=== PATIENT | male | born 1985 | race Caucasian/White ===

== ENCOUNTER 2016-09-23 02:15 | Emergency (ER) | payer OTHER ==
[~2016-09-23] VITALS: Ht 185.4 cm; Wt 81.6 kg
[2016-09-23 02:24] VITALS: BP 153/81
[2016-09-23] MEDS ORDERED: HYDR-971 PO (02:32)
--- NOTE | 2016-09-23 02:32 | PHYS DOC ---
Past Medical History Past Medical History: GERD, P.U.D., Schizophrenia Past Surgical History: No Surgical History Alcohol Use: None Drug Use: None Adult General Chief Complaint Chief Complaint: LOWER BACK PAIN OR INJURY [facility] HPI This is a 31-year-old male who presents with 3 days worth of left-sided sciatic type pain that he states happened suddenly while he was trying to lift his daughter. Patient ambulated in the department with his back hunched and appeared to be in significant pain. He states the pain is localized primarily to his left lumbar region and does radiate into his time buttock on the left side. He denies any urinary incontinence. He denies any saddle-type anesthesia. He states he's had similar symptoms several years ago and has required steroid injections in his spine before. He denies any significant past mental history. 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 Review of Systems Review of Systems Constitutional: Denies fever or chills [] Eyes: Denies change in visual acuity, redness, or eye pain [] HENT: Denies nasal congestion or sore throat [] Respiratory: Denies cough or shortness of breath [] Cardiovascular: No additional information not addressed in HPI [] GI: Denies abdominal pain, nausea, vomiting, bloody stools or diarrhea [] : Denies dysuria or hematuria [] Musculoskeletal: Has back pain, denies joint pain [] Integument: Denies rash or skin lesions [] Neurologic: Denies headache, focal weakness or sensory changes [] Endocrine: Denies polyuria or polydipsia [] Current Medications Current Medications Current Medications Medications (Trade) Dose Ordered Sig/[facility] Start Time Stop Time Status Last Admin Dose Admin Ketorolac Tromethamine (Toradol Im) 60 mg 1X ONCE 09/23/16 02:45 09/23/16 02:46 DC 09/23/16 02:44 60 MG Allergies Allergies Allergies Coded Allergies Type Severity Reaction Last Updated Verified No Known Drug Allergies 10/20/14 No Physical Exam Physical Exam Constitutional: Well developed, well nourished, no acute distress, non-toxic appearance. [] HENT: Normocephalic, atraumatic, bilateral external ears normal, oropharynx moist, no oral exudates, nose normal. [] Eyes: PERRLA, EOMI, conjunctiva normal, no discharge. [] Neck: Normal range of motion, no tenderness, supple, no stridor. [] Cardiovascular:Heart rate regular rhythm, no murmur [] Lungs & Thorax: Bilateral breath sounds clear to auscultation [] Abdomen: Bowel sounds normal, soft, no tenderness, no masses, no pulsatile masses. [] Skin: Warm, dry, no erythema, no rash. [] Back: Left lower lumbar tenderness with no palpable deformity or stepoff, no CVA tenderness. [] Extremities: No tenderness, no cyanosis, no clubbing, ROM intact, no edema. [] Neurologic: Alert and oriented X 3, normal motor function, normal sensory function, no focal deficits noted. [] Psychologic: Affect normal, judgement normal, mood normal. [] Current Patient Data Vital Signs Vital Signs Date Time Temp Pulse Resp B/P Pulse Ox O2 Delivery O2 Flow Rate FiO2 09/23/16 02:24 98.0 87 16 153/81 97 Room Air 98.0 EKG EKG [] Radiology/Procedures Radiology/Procedures [] Course & Med Decision Making Course & Med Decision Making Pertinent Labs and Imaging studies reviewed. (See chart for details) This is a 31 yo male presents with acute lower lumbar tenderness in a sciatic type pattern was given an injection of Toradol and will be given a brief course of Ramey for his symptoms with strict instruction [facility] if his symptoms do not improve. He was explicitly told to avoid any strenuous activities and to take his pain medication only as needed. He is discharged without incident feeling much improved. Dragon Disclaimer Dragon Disclaimer This electronic medical record was generated, in whole or in part, using a voice recognition dictation system. Departure Departure Impression: Primary Impression: Sciatica of left side Disposition: 01 HOME, SELF-CARE Admitting Physician: Other Condition: IMPROVED Referrals: NO PCP (PCP) Patient Instructions: Sciatica, [id number] Additional Instructions: Please take your pain medication as needed and continue to take motrin for your symptoms. [facility] as you may require an MRI. Return to the ER if you develop any worsening of your symptoms. Scripts Hydrocodone/Apap 5-325 (Ramey 5-325 Tablet)1 Each Tablet1 Tab PO PRN Q6HRS PRN PAIN #10 TAB Prov:LIZZETH AVILA DO 09/23/16 LIZZETH AVILA DO Sep 23, 2016 02:32
[2016-09-23] MEDS ORDERED: KETOROLAC TROMETHAMINE 60 MG/2 ML INJ. IM ONE (02:45)
== END 2016-09-23 02:48 | disposition home or self-care (01) ==
LOC: ER 02:15
DX: M54.42 Lumbago with sciatica, left side (principal); K21.9 Gastro-esophageal reflux disease without esophagitis; F20.9 Schizophrenia, unspecified
CPT/HCPCS: 96372; 99283; J1885

== ENCOUNTER 2016-11-28 00:53 | Emergency (ER) | payer OTHER ==
[~2016-11-28] VITALS: Ht 185.4 cm; Wt 81.6 kg
[~2016-11-28 00:53] MED LIST: HYDR-971 PO
[2016-11-28 01:00] VITALS: BP 142/67
[2016-11-28] MEDS ORDERED: CYCL5TAB PO (01:20)
--- NOTE | 2016-11-28 01:21 | PHYS DOC ---
Past Medical History Past Medical History: GERD, P.U.D., Schizophrenia Past Surgical History: No Surgical History Alcohol Use: None Drug Use: None Adult General Chief Complaint Chief Complaint: LOWER BACK PAIN OR INJURY HPI HPI Patient is a 31 year old male who presents with 2 days of right lower back pain radiating to his left side and down the back of his left buttock when he bends over. Pain started with bending incident. His pain is constant, crampy/ spasm-like/achy, worse with range of motion. He denies saddle anesthesia, numbness, tingling, weakness, bowel or bladder dysfunction, abdominal pain, fever or chills, nausea or vomiting, dysuria, hematuria. Review of Systems Review of Systems Constitutional: Denies fever or chills [] Eyes: Denies change in visual acuity, redness, or eye pain [] HENT: Denies nasal congestion or sore throat [] Respiratory: Denies cough or shortness of breath [] Cardiovascular: No additional information not addressed in HPI [] GI: Denies abdominal pain, nausea, vomiting, bloody stools or diarrhea [] : Denies dysuria or hematuria [] Musculoskeletal: Denies joint pain [] Integument: Denies rash or skin lesions [] Neurologic: Denies headache, focal weakness or sensory changes [] Endocrine: Denies polyuria or polydipsia [] Current Medications Current Medications Current Medications Medications (Trade) Dose Ordered Sig/[facility] Start Time Stop Time Status Last Admin Dose Admin Cyclobenzaprine HCl (Flexeril) 5 mg 1X ONCE 11/28/16 01:30 11/28/16 01:31 DC 11/28/16 01:39 5 MG Dexamethasone (Decadron) 10 mg 1X ONCE 11/28/16 01:30 11/28/16 01:31 DC 11/28/16 01:39 10 MG Ketorolac Tromethamine (Toradol) 15 mg 1X ONCE 11/28/16 01:30 11/28/16 01:31 DC 11/28/16 01:39 15 MG Allergies Allergies Allergies Coded Allergies Type Severity Reaction Last Updated Verified No Known Drug Allergies 10/20/14 No Physical Exam Physical Exam Constitutional: Well developed, well nourished, no acute distress, non-toxic appearance. [] HENT: Normocephalic, atraumatic, bilateral external ears normal, oropharynx moist, nose normal. [] Eyes: PERRLA, EOMI. [] Neck: Normal range of motion, supple. [] Cardiovascular:Heart rate regular rhythm [] Lungs & Thorax: Bilateral breath sounds clear to auscultation [] Abdomen: Bowel sounds normal, soft, no tenderness. [] Skin: Warm, dry, no erythema, no rash. [] Back: No midline spinal tenderness, no CVA tenderness. Has right lumbar paraspinal tenderness with no visual or palpable abnormality [] Extremities: No tenderness, ROM intact, no edema. [] Neurologic: Alert and oriented X 3, normal motor function, normal sensory function, no focal deficits noted. [] Psychologic: Affect normal, judgement normal, mood normal. [] Current Patient Data Vital Signs Vital Signs Date Time Temp Pulse Resp B/P (MAP) Pulse Ox O2 Delivery O2 Flow Rate FiO2 11/28/16 01:00 97.8 91 18 100 Room Air 97.8 Course & Med Decision Making Course & Med Decision Making Discussed supportive care. Encouraged primary care follow-up. Return precautions given. He understands and agrees with plan. Dragon Disclaimer Dragon Disclaimer This electronic medical record was generated, in whole or in part, using a voice recognition dictation system. Departure Departure Impression: Primary Impression: Low back pain Disposition: HOME, SELF-CARE Condition: STABLE Referrals: UNKNOWN PCP NAME (PCP) Patient Instructions: Back Pain, Adult, [id number] Additional Instructions: Take Tylenol or ibuprofen as needed for moderate pain. Take cyclobenzaprine as needed for severe pain. Do not drink, drive or operate heavy machinery after taking cyclobenzaprine as it may make you sleepy. Follow-up with your primary care doctor within one week. Return for any concerns. Scripts Cyclobenzaprine Hcl (CYCLOBENZAPRINE HCL) 5 Mg Tablet 1 TAB PO TID Y for MUSCLE SPASMS, #10 TAB Prov: Basilio AMARAL MD 11/28/16 Problem Qualifiers Primary Impression: Low back pain Chronicity: acute Back pain laterality: right Sciatica presence: with sciatica Sciatica laterality: sciatica of left side Qualified Codes: M54.42 - Lumbago with sciatica, left side Basilio AMARAL MD Nov 28, 2016 01:21
[2016-11-28] MEDS ORDERED: DEXAMETHASONE 4 MG TABLET PO ONE (01:30)
[2016-11-28] MEDS ORDERED: KETOROLAC 15 MG/ML VIAL. IM ONE (01:30)
[2016-11-28] MEDS ORDERED: CYCLOBENZAPRINE 10 MG TABLET. PO ONE (01:30)
== END 2016-11-28 01:46 | disposition home or self-care (01) ==
LOC: ER 00:53
DX: M54.42 Lumbago with sciatica, left side (principal); K21.9 Gastro-esophageal reflux disease without esophagitis; F20.9 Schizophrenia, unspecified; Z87.11 Personal history of peptic ulcer disease
CPT/HCPCS: 96372; 99283; J1885; J8540

== ENCOUNTER 2017-06-13 18:02 | Emergency (ER) | payer OTHER ==
[2017-06-13 19:32] LABS: ADD MAN DIFF? NO
[2017-06-13 19:37] LABS: BASO # 0.1 x10^3/uL (0.0-0.2); BASO % 1 % (0-3); EOS # 0.7 x10^3/uL (0.0-0.7); EOS % 10 % (0-3); HEMATOCRIT 45.6 % (39.0-53.0); HEMOGLOBIN 15.6 g/dL (13.0-17.5); LYMPH # 2.6 x10^3/uL (1.0-4.8); LYMPH % 36 % (24-48); MEAN CORPUSCULAR HEMOGLOBIN 30 pg (25-35); MEAN CORPUSCULAR HGB CONC 34 g/dL (31-37); MEAN CORPUSCULAR VOLUME 89 fL (79-100); MONO # 0.7 x10^3/uL (0.0-1.1); MONO % 10 % (0-9); NEUT # 3.2 x10^3uL (1.8-7.7); NEUT % 44 % (31-73); PLATELET COUNT 238 x10^3/uL (140-400); RED BLOOD COUNT 5.14 x10^6/uL (4.30-5.70); RED CELL DISTRIBUTION WIDTH 12.7 % (11.5-14.5); WHITE BLOOD COUNT 7.3 x10^3/uL (4.0-11.0)
[2017-06-13] MEDS: IV NORMAL SALINE 1000ML BAG 1,000 ML IV (19:41)
[2017-06-13] MEDS: ONDANSETRON PF 4 MG/2 ML VIAL. IV (19:41)
[2017-06-13] MEDS: fentaNYL PF VIAL 100 MCG/2 ML VIAL IV (19:42)
[2017-06-13] MEDS ORDERED: CONTRAST GIVEN MC (19:45)
[2017-06-13 19:47] LABS: ANION GAP 9 (6-14); BLOOD UREA NITROGEN 17 mg/dL (8-26); BUN/CREATININE RATIO 19 (6-20); CALCIUM 8.5 mg/dL (8.5-10.1); CARBON DIOXIDE 29 mmol/L (21-32); CHLORIDE 104 mmol/L (98-107); CREATININE 0.9 mg/dL (0.7-1.3); GFR 99.1; GLUCOSE 98 mg/dL (70-99); POTASSIUM 3.7 mmol/L (3.5-5.1); SODIUM 142 mmol/L (136-145)
[2017-06-13 19:53] LABS: ALBUMIN 4.1 g/dL (3.4-5.0); ALBUMIN/GLOBULIN RATIO 1.2 (1.0-1.7); ALK PHOS 73 U/L (46-116); ALT (SGPT) 22 U/L (16-63); AST (SGOT) 17 U/L (15-37); TOTAL BILIRUBIN 0.7 mg/dL (0.2-1.0); TOTAL PROTEIN 7.4 g/dL (6.4-8.2)
[2017-06-13] MEDS: IOHEXOL 300 MG/ML 100ML VIAL. IV (20:01)
[2017-06-13 20:22] LABS: BILIRUBIN,URINE NEGATIVE (NEG); CLARITY,URINE CLEAR; COLOR,URINE YELLOW; GLUCOSE,URINE NEGATIVE (NEG); NITRITE,URINE NEGATIVE (NEG); PROTEIN,URINE NEGATIVE (NEG-TRACE)
[2017-06-13 20:32] LABS: RBC,URINE 0 /HPF (0-2); WBC,URINE 0 /HPF (0-4)
[2017-06-13 20:33] LABS: BACTERIA,URINE 0 /HPF (0-FEW); SQUAMOUS EPITHELIAL CELL,UR OCC /LPF
== END 2017-06-13 20:50 | disposition home or self-care (01) ==
LOC: ER 18:02
DX: R10.31 Right lower quadrant pain (principal); K21.9 Gastro-esophageal reflux disease without esophagitis; F20.9 Schizophrenia, unspecified; Z87.11 Personal history of peptic ulcer disease
CPT/HCPCS: 36415; 74177; 80053; 81001; 85025; 96361; 96374; 96375; 99285-25; J2405; J3010; J7030; Q9967